=== PATIENT | male | born 1985 | race American Indian/Alaskan Native ===

== ENCOUNTER 2017-12-04 00:40 | Emergency (ER) | payer MEDICAID ==
[2017-12-04 00:55] VITALS: BP 122/74; PULSE 77; RESP 18; TEMP 98.6; O2SAT 98
--- NOTE | 2017-12-04 01:18 | ED PDOC ---
Upper Extremity Pain/Injury Time Seen by Provider: 12/04/17 01:05 Chief Complaint (Nursing): Upper Extremity Problem/Injury Chief Complaint (Provider): left elbow pain History Per: Patient History/Exam Limitations: no limitations Onset/Duration Of Symptoms: Hrs Current Symptoms Are (Timing): Still Present Exacerbating Factor(s): Movement Additional Complaint(s): 31 y/o male presents complaining of left elbow pain x 3 hours. Patient states he was lifting his left arm up above his head to grab something at work when he felt sudden pain, and pain with movement since then. Denies numbness/weakness left upper extremity, swelling, limitation of movement. Patient also note left ear pain x 1 week, has been taking ibuprofen without improvement. Denies fever, drainage from ear, nasal congestion, cough. Past Medical History Reviewed: Historical Data, Nursing Documentation, Vital Signs Vital Signs: Last Vital Signs Temp 98.6 F 12/04/17 00:51 Pulse 77 12/04/17 00:51 Resp 18 12/04/17 00:51 BP 122/74 12/04/17 00:51 Pulse Ox 98 12/04/17 00:51 - Medical History PMH: No Chronic Diseases - Surgical History Surgical History: No Surg Hx - Family History Family History: States: No Known Family Hx - Living Arrangements Living Arrangements: With Family - Home Medications Home Medications: Ambulatory Orders Medication Instructions Recorded Ibuprofen [Motrin Tab] 1 tab PO Q6 PRN #15 tab 12/04/17 Neomycin/Polymyxin/Hydrocortis 4 drop OT TID 10 Days bottle 12/04/17 [Cortisporin Otic Susp] - Allergies Allergies/Adverse Reactions: Allergies Allergy/AdvReac Type Severity Reaction Status Date / Time No Known Allergies Allergy Verified 12/04/17 00:51 Review of Systems ROS Statement: Except As Marked, All Systems Reviewed And Found Negative ENT: Positive for: Ear Pain (left) Musculoskeletal: Positive for: Arm Pain (left elbow) Physical Exam - Reviewed Nursing Documentation Reviewed: Yes Vital Signs Reviewed: Yes - Physical Exam Appears: Positive for: Well, Non-toxic, No Acute Distress Head Exam: Positive for: ATRAUMATIC, NORMAL INSPECTION, NORMOCEPHALIC Skin: Positive for: Normal Color Eye Exam: Positive for: Normal appearance ENT: Positive for: Normal ENT Inspection, TM Is/Are (TM's clear bilaterally. Mild edema left EAC with + tenderness upon speculum insertion. + left pinna/ tragus manipulation. Right EAC clear. No mastoid swelling/erythema/tenderness bilaterally) Cardiovascular/Chest: Positive for: Regular Rate, Rhythm Respiratory: Positive for: Normal Breath Sounds Pulses-Radial (L): 2+ Pulses-Radial (R): 2+ Extremity: Positive for: Normal ROM, Tenderness (medial and lateral to left olecranon; FROM. No swelling, deformity noted) Neurologic/Psych: Positive for: Alert, Oriented. Negative for: Motor/Sensory Deficits - ECG O2 Sat by Pulse Oximetry: 98 - Other Rad xray left elbow X-Ray: Viewed By Hi X-Ray Interpretation: no acute findings - Progress ED Course And Treament: xray, ibuprofen Patient educated on findings, sling given for comfort. Rx Cortisporin, Ibuprofen provided Advised RICE Follow up PMD 2-3 days. Return precautions given. Disposition - Clinical Impression Clinical Impression: Sprain of elbow, left, Otitis externa - Patient ED Disposition Is Patient to be Admitted: No Counseled Patient/Family Regarding: Studies Performed, Diagnosis, Need For Followup, Rx Given - Disposition Referrals: Paul Guerrero MD [Primary Care Provider] - Disposition: Routine/Home Disposition Time: 02:25 Condition: IMPROVED Prescriptions: Ibuprofen [Motrin Tab] 1 tab PO Q6 PRN #15 tab PRN Reason: Pain, Moderate (4-7) Neomycin/Polymyxin/Hydrocortis [Cortisporin Otic Susp] 4 drop OT TID 10 Days bottle Instructions: Elbow Sprain (DC), Outer Ear Infection (DC) Forms: [facility] ([place])
--- NOTE | 2017-12-04 09:54 | RAD ---
PROCEDURE: Radiographs of the left elbow. HISTORY: pain COMPARISON: No prior. FINDINGS: BONES: No acute cardiopulmonary disease appreciated. JOINTS: Normal. No osteoarthritis. SOFT TISSUES: Normal. JOINT EFFUSION: None. OTHER FINDINGS: None IMPRESSION: Unremarkable radiographs of the left elbow.
== END 2017-12-04 02:38 | disposition home or self-care (01) ==
LOC: H.ER 00:40
DX: S53.402A Unspecified sprain of left elbow, initial encounter (principal); X50.9XXA Other and unspecified overexertion or strenuous movements or postures, initial encounter; Y99.0 Civilian activity done for income or pay; H60.92 Unspecified otitis externa, left ear